=== PATIENT | female | born 1990 | race Caucasian/White ===

== ENCOUNTER 2016-10-12 01:56 | Emergency (ER) | payer SELFPAY ==
[~2016-10-12 01:56] MED LIST: BACTRIM DS TABL1 TA1 PO; BENADRYL25 MG PO; IMODIUM2 MG PO; NAPROSYN500 MG PO; NORCO 5/325 TAB1 TAB PO; PHENERGAN PO; PHENERGAN25 MG PO; PREDNISONE10 MG/DOSE PO; TESSALON200 MG PO; VIBRAMYCIN100 M1 PO; ZANTAC PO; ZOFRAN2 MG/M1 PO
== END 2016-10-12 03:55 | disposition home or self-care (01) ==
LOC: CED 01:56
DX: G43.909 Migraine, unspecified, not intractable, without status migrainosus (principal)
CPT/HCPCS: 99282; J1885

== ENCOUNTER 2017-01-04 03:38 | Emergency (ER) | payer SELFPAY | END 2017-01-04 06:00 | disposition home or self-care (01) | LOC: CED 03:38 | DX: L60.0 Ingrowing nail (principal) | CPT/HCPCS: 99283 ==